=== PATIENT | female | born 1975 | race Caucasian/White ===

== ENCOUNTER 2024-08-12 11:54 | Outpatient (AMB) | payer BC, SELFPAY ==
--- NOTE | 2024-08-12 11:56 | HO.NEPHOV ---
Vital Signs 08/12/24 11:57 Height 5 ft 3 in Weight 154 lb 2 oz BMI 27.3 BP 122/68 Blood Pressure Location Lt brachial Position Sitting Pulse 76 Pulse Source Pulse Oximeter Pulse Oximetry (%) 98 Oxygen Delivery Method Room Air Intake Visit Reasons: Previous patient/ LVM Accompanied by: Father Allergies Influenza Virus Vaccines Allergy (Intermediate, Verified 08/12/24 11:57) Hives Medication List - Last Reconciled 08/12/24 by Nirav Espinoza MD cholecalciferol (vitamin D3) (Vitamin D3) 25 mcg PO DAILY lidocaine 5% 1 patch topical DAILY minoxidil 2.5 mg PO BID spironolactone 50 mg PO DAILY tramadol mg PO zolpidem 10 mg PO BEDTIME PRN HPI Comments Details: Patient self-referred for proteinuria. Previously seen by Dr. Manley. I do not have the full medical records at this time. She does have a complicated medical history [facility] Social History (Updated 08/12/24 @ 11:57 by Micaela Davila [facility]) Alcohol intake: never Patient Tobacco Use Status: Never used Tobacco Review of Systems Const Denies fever(s) and Denies weight loss Card Denies chest pain Resp Denies cough and Denies hemoptysis GI Denies abdominal pain, Denies diarrhea and Denies nausea Musc Denies back pain Neuro Denies focal weakness Physical Exam Vital Signs: Last Vital Signs Pulse 76 08/12/24 11:57 BP 122/68 08/12/24 11:57 Pulse Ox 98 08/12/24 11:57 Oxygen Delivery Method Room Air 08/12/24 11:57 BMI result Body Mass Index 27.3 Comfortable Neck supple no JVD. Lungs entry equal no rales. Heart S1-S2 heard no gallop or rub. Abdomen soft nontender. Neuro alert awake oriented. No asterixis. Extremities no edema. Results Reviewed Results Reviewed: Pending Nephrology Results: Urine Protein > OR = 300 MG/DL (NEG - TRACE) H 05/09/18 Assessment & Plan Assessment & Plan (1) Proteinuria: Code(s): R80.9 - Proteinuria, unspecified Category: Medical Plan Middle-aged woman with proteinuria. 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 She underwent a kidney biopsy few years ago. I will track down the results. I have initiated a workup to obtain a baseline renal function as well. She will benefit from VICKIE inhibition. She will also benefit from SGLT2 inhibitor. Discussed importance of tight control blood pressure to slow the portion disease. She should stay on low-sodium diet. Once the basic workup is completed she will return to the office Coding Level of Care Code New Pt Level 4 (19282) Diagnoses Proteinuria R80.9
[2024-08-12 11:57] VITALS: BP 122/68; PULSE 76; O2SAT 98; BMI 27.3
--- OUTSIDE RECORDS SUMMARY | 2024-08-12 14:21 | XMS_ITS | Continuity of Care Document ---
Author Organization [facility] Address [address] [place] [address] Phone Care Team Providers Care Hand Splitter Name Role Phone Elliott PHAN FACS RVT Melanie DILLARD Unavailable Unavailable Advance Directives Directive Yes / No Effective Date File Name No Information Encounters Encounter Description Practice Location Reason(s) For Visit Diagnoses Date Provider Providers Copied on Encounter [facility], [address], [place], [id number], tel:[phone] [address] No Information 3 Elliott PHAN FACS RVT NISHANT Dooley. [address], [place], [address], . tel:[phone] Referring Provider: Jorge Britt MD F, [address], [place], [address]. tel:[phone] Family History Family Member Type Diagnosis Age At Onset No Information Payers Payer name Insurance type Covered alliance party ID Authoriza tion(s) No Information Social History Type Description Quantity Date Captured Comments Sex Female Smoking Status No Information Chief Complaint And Reason For Visit No Information Reason For Referral Reason For Referral No Information History Of Present Illness Encounter Date Complaint History Of Prese nt Illness No Information Functional Status Date Functional Assessmen t No Information Instructions Date Instruction Additional Infor mation No Information Assessments Type Assessment Date No Information Patient Care Teams Name Effective Dates (start - stop) Status Members No Information
--- OUTSIDE RECORDS SUMMARY | 2024-08-12 14:21 | XMS_ITS | Clinical Summary ---
Author Organization [facility] Address [address] [place] [address] Care Team Providers Care Occupational Therapy Supervisor Name Role Phone Rosario Herrera MD Primary Care Provider [phone] Medications Medication Sig Dispensed Refills Start Date End Date Status Tacrolimus (ENVARSUS XR) 4 MG TB24 Take 8 mg by mouth 2 (two) times a day. 0 Active losartan (COZAAR) 100 MG tablet Take 1 tablet (100 mg total) by mouth daily. 90 tablet 0 09/08/2019 Active traMADol (ULTRAM) 50 MG tablet Take 50 mg by mouth every 8 (eight) hours as needed for pain. 18 tablet 0 10/20/2019 Active Social History Tobacco Use Types Packs/Day Years Used Date Smoking Tobacco: Never Assessed Sex and Gender Information Value Date Recorded Sex Assigned at Female 07/28/2019 11:46 AM EDT Gender Identity Female 07/28/2019 11:46 AM EDT Sexual Orientation Not on file Last Filed Vital Signs Vital Sign Reading Time Taken Comments Blood Pressure - - Pulse - - Temperature - - Respiratory Rate - - Oxygen Saturation - - Inhaled Oxygen Concentration - - Weight 104.3 kg (230 lb) 07/30/2019 4:49 PM EDT Height 160 cm (5' 3 ) 07/30/2019 4:49 PM EDT Body Mass Index 40.74 07/30/2019 4:49 PM EDT Plan of Treatment Health Maintenance Due Date Last Done Comments Hepatitis B Vaccines (1 of 3 - 3-dose series) 1975 Hepatitis C Screening 1975 COVID-19 Vaccine (#1) 10/07/1980 Pneumococcal Vaccine (1 of 2 - PCV) 10/07/1981 Depression Screening 1987 Preventative Health Evaluation 10/07/1993 DTap / Tdap / Td (1 - Tdap) 10/07/1994 Cervical Cancer Screening (P ap Smear) 10/07/1996 BMI Counseling 07/29/2020 07/30/2019 Colon Cancer Screening (Colonoscopy) 10/07/2020 Influenza Vaccine (#1) 2023 RSV Ped < 20 months Aged Out No longe r eligible based on patient's age to complete this topic Care Teams Occupational Therapy Supervisor Relationship Specialty Start Date End Date Rosario Herrera MD PCP - General Internal Medicine 07/31/19
--- OUTSIDE RECORDS SUMMARY | 2024-08-12 14:21 | XMS_ITS | Clinical Summary ---
Author Organization Patient Business Ser [facility] Address [address] [place] [address] Care Team Providers Care Senior C Software Engineer Name Role Phone Karime Esposito MD Primary Care Provider [phone] Allergies Active Allergy Reactions Criticality Noted Date Comments Flu Vac 2023 [id number](Pf) 04/13/2024 Latex Medium 04/02/2019 Latex Agent: Other Reaction(s): Rash/Dermatitis Medications BIOTIN ORAL Take by mouth. Act jing mv-mn/iron/FA/ vit K/chol/coQ10 (DEKAS BARIATRIC ORAL) MULTIPLE VITAMINS-MINERA LS (DEKAS BARIATRIC) CHEW TAB: Take 1 Tab by mouth daily. 07/12/19 21 Active sertraline (ZOLOFT) 50 mg tablet 0.5 mg. 11/15/19 21 Active ketoconazole (NIZORAL) 2 % shampoo 11/15/19 21 Active cyclobenzaprin e (FLEXERIL) 10 mg tablet Take 0.5 tablets (5 mg total) by mouth 2 (two) times a day if needed. 05/23/19 24 Active gabapentin (NEURONTIN) 100 mg capsule Take 1 capsule (100 mg total) by mouth at bedtime. As needed 04/08/20 24 Active lidocaine (LIDODERM) 5 % patch Apply 1 patch topically 1 (one) time each day. 04/08/20 24 Active meclizine (ANTIVERT) 12.5 mg tablet Take 1 tablet (12.5 mg total) by mouth. As needed 09/20/19 24 Active minoxidiL (LONITEN) 2.5 mg tablet Take 1 tablet (2.5 mg total) by mouth. As needed 01/28/20 24 Active spironolactone (ALDACTONE) 100 mg tablet Take 1 tablet (100 mg total) by mouth 1 (one) time each day. 02/18/20 24 Active tiZANidine (ZANAFLEX) 4 mg tablet Take 1 tablet (4 mg total) by mouth if needed. 01/10/20 24 Active zolpidem (AMBIEN) 10 mg tablet Take 1 tablet (10 mg total) by mouth at bedtime as needed. 03/09/20 24 Active polyethylene glycol (Golytely) 236-22.74-6.74 -5.86 gram solution Take 4L by mouth once for one dose. May substitue any PEG. Starting at 6PM the night before your procedure drink 1 8oz glasses at your own pace until you complete half of the gallon. Finish 2nd half of the gallon 5 hours before your procedure. 4000 mL 04/21/20 24 Active bisacodyL (DULCOLAX) 5 mg EC tablet Take 2 tablets by mouth right before beginning bowel prep. See instructions provided by the office 2 tablet 04/21/20 24 Active lactulose (CHRONULAC) solution TAKE 15ML (10 G TOTAL) BY MOUTH TWICE A DAY 2700 mL 08/11/19 25 Active lactulose (Enulose) solution Take 15 mL (10 g total) by mouth 2 (two) times a day. 2700 mL 05/11/19 25 025 Discontinued Active Problems Problem Noted Date Diagnosed Date Epigastric pain 04/08/2024 Class 3 severe obesity due t o excess calories with serious comorbidity and body mass index (BMI) of 40.0 to 44.9 in adult 04/08/2024 Asthma 10/30/2005 Hemorrhage of rectum and anus 09/20/2005 Allergic rhinitis 08/03/2005 Iron deficiency anemia 08/03/2005 Immunizations Name Administration Dates Next Due Td Tetanus diptheria (Tdvax) 7yo and older 08/03 Surgical History Surgery Date Site/Laterality Comments BELT ABDOMINOPLASTY 2004 PROCEDURE: HISTORICAL TUMMY TUCK WISDOM TOOTH EXTRACTION PROCEDURE: HISTORICAL WISDOM TEETH EXTRACTION Medical History Medical History Date Comments History of vitamin D deficiency 04/19/2015 DX:History of vitamin D deficiency Low grade squamous intraepit h lesion on cytologic smear cervix (lgsil) 04/19/2015 DX:Low grade squamou s intraepith lesion on cytologic smear cervix (lgsil); COMMENT: LSIL + HPV History of colposcopy 05/19/2015 DX:History of colposcopy; COMMENT: negative Hypertension DX:Hypertension Arthritis DX:Arthritis H/O breast biopsy 04/18/2015 DX:H/O breast biopsy Bartholin cyst 08/10/2011 DX:Bartholin cys t Proteinuria 09/15/2015 DX:Proteinuria 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 DX:HSV-2 (herpes simplex vir us 2) infection History of cervical cerclage 05/07/2008 DX: History of cervical cerclage Polyp at cervical os 2003 DX:Polyp at cervical os History of anemia 09/29/2008 DX:History of anemia Anemia DX:Anemia Anxiety state DX:Anxiety state Asthma DX:Asthma Abnormal cytological finding in specimen from cervix DX:Abnormal cytological find ing in specimen from cervix Nephritis and nephropathy, 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 DX:Nephritis and nephrop athy, with pathological lesion in kidney Venereal disease 2012 DX:Venereal dis ease; COMMENT: + HSV Esophageal reflux DX:Esophageal reflux Epigastric pain DX:Epigastric pa in History of gastric surgery DX:Hi story of gastric surgery Irritable bowel syndrome Family History Medical History Relation Name Comments Coronary artery disease Father Stroke Father Arthritis Mother Hyperlipidemia Mother Hypertension Mother Breast cancer Neg Hx Cervical cancer Neg Hx Colon cancer Neg Hx Ovarian cancer Neg Hx Prostate cancer Neg Hx Relation Name Status Comments Brother Alive 2,healthy Father Alive Mother Alive Sister Alive healthy Social History Tobacco Use Types Packs/Day Years Used Date Smoking Tobacco: Former Cigarettes Q uit: 12/31/2009 Smokeless Tobacco: Never Alcohol Use Standard Drinks/Week Comments No 0 (1 standard drink = 0.6 oz pur e alcohol) Interpersonal Safety Answer Date Record ed Physical Abuse 04/28/2024 Verbal Abuse 04/28/2024 Comments Unknown Sex and Gender Information Value Date Recorded Sex Assigned at Not on file Legal Sex Female 8:53 PM EDT Gender Identity Not on file Sexual Orientation Not on file Obstetrics History Last Filed Vital Signs Vital Sign Reading Time Taken Comments Blood Pressure 132/97 04/28/2024 9:46 AM EST Pulse 84 04/28/2024 9:46 AM EST Temperature 36.4 ??C (97.5 ??F) 04/28/2024 9:26 AM ES T Respiratory Rate 18 04/28/2024 9:46 AM EST Oxygen Saturation 95% 04/28/2024 9:26 AM EST Inhaled Oxygen Concentration - - Weight 68.5 kg (151 lb) 04/17/2024 10:24 AM EST Height 160 cm (5' 3 ) 04/17/2024 10:24 AM EST Body Mass Index 26.75 04/17/2024 10:24 AM EST Plan of Treatment Health Maintenance Due Date Last Done Comments Pneumococcal Vaccine: Pediatrics (0 to 5 Years) and At-Risk Patients (6 to 64 Years) (1 of 2 - PCV) 10/07/1994 Hepatitis B Vaccines (3 of 3 - 19+ 3-dose series) 07/05/2008 02/24/2008, 01/06/2008 DTaP,Tdap,and Td Vaccines (2 - Td or Tdap) 08/04/2015 08/03/2005 Depression Screening 02/05/2022 Social Influencers of Health Screening 02/05/2022 Breast Cancer Screening 02/09/2022 02/10/20 20, 01/06/2019, 12/18/2017 COVID-19 Vaccine ( season) 2023 02/17/2022, 10/18/2021, 05/13/2021, Additional history exists Cervical Cancer Screening: HPV 01/01/2024 12/31/2018 Hypertension/CHF/CAD Annual BMP Blood Test 04/13/2024 11/15/2020 Cholesterol Screening (Lipid Panel) 2024 10/09/2019 Influenza Vaccine (Season Ended) 2024 01/18/2017 Colorectal Cancer Screening: Colonoscopy 04/28/2027 04/28/2024 Hepatitis A Vaccines Aged Out 01/06/2008 No long er eligible based on patient's age to complete this topic HIV Screening Completed 07/14/2020 Hepatitis C Screening Completed 07/14/2020 HIB Vaccines Aged Out No longer eligi ble based on patient's age to complete this topic HPV Vaccines Aged Out No longer eligi ble based on patient's age to complete this topic IPV Vaccines Aged Out No longer eligi ble based on patient's age to complete this topic MMR Vaccines Aged Out No longer eligi ble based on patient's age to complete this topic Meningococcal ACWY Vaccine Aged Out N o longer eligible based on patient's age to complete this topic Meningococcal B Vaccine Aged Out No l onger eligible based on patient's age to complete this topic RSV Immunization Patients Under 20 months Aged Out No longer eligible based on patient's age to complete this topic Varicella Vaccines Aged Out No longer eligible based on patient's age to complete this topic Procedures Procedure Name Priority Date/Time Associated Diagnosis Comments COLONOSCOPY Routine 04/28/2024 9:25 AM EST Colon cancer screening Dysphagia ANNUAL BMP BLOOD TEST Routine 11/15/2020 HEPATITIS C SCREENING Routine 07/14/2020 HIV SCREENING Routine 07/14/2020 [facility] SCREENING DIGITAL Routine 02/10/2020 11:13 AM EDT Encounter for screening mammogram for malignant neoplasm of breast LIPID PANEL Routine 10/09/2019 HPV Routine 12/31/2018 from Last 3 Months or Most Recently Relevant to Health Maintenance Results * COLONOSCOPY Anesthesia - MAC; [facility] ENDOSCOPY (04/28/2024 9:25 AM EST) Anatomical Region Laterality Modality Endoscopy 04/28/2024 8:55 AM EST Impressions 04/28/2024 9:26 AM EST - Hemorrhoids found on perianal exam. ? - One 7 mm polyp in the cecum, removed with a cold ? snare. Resected and retrieved. ? - Two 2 to 3 mm polyps in the cecum, removed with a ? jumbo cold forceps. Resected and retrieved. ? - The examination was otherwise normal on direct and ? retroflexion views. Recommendation: ?- - Discharge patient to home. ? - High fiber diet. ? - Continue present medications. ? - Await pathology results. ? - Repeat colonoscopy for surveillance based on ? pathology results. Narrative 04/28/2024 9:26 AM EST [facility] GI Patient Name: Kortney Durant Procedure Date: 04/28/2024 8:55 AM Date of : 1975 Age: 48 Gender: Female Note Status: Finalized Attending MD: Ford Read DO, [id number] Procedure Date No Time: 04/28/2024 Procedure: ? Colonoscopy Indications: ? Screening for colorectal malignant neoplasm Providers: ? Ford Read DO Referring MD: ?Karime Esposito MD Medicines: ? Monitored Anesthesia Care Complications: ? No immediate complications. Estimated blood loss: ? Minimal. Estimated Blood Loss: ? Estimated blood loss was minimal. Procedure: ? Pre-Anesthesia Assessment: ? - - Prior to the procedure, a History and Physical was ? performed, and patient medications and allergies were ? reviewed. The patient is competent. The risks and ? benefits of the procedure and the sedation options and ? risks were discussed with the patient. All questions ? were answered and informed consent was obtained. ? Patient identification and proposed procedure were ? verified by the physician, the nurse, the ? anesthesiologist, the supervisor slashing department and the driver service technician ? in the pre-procedure area in the endoscopy suite. ? Mental Status Examination: alert and oriented. Airway ? Examination: normal oropharyngeal airway and neck ? mobility. Respiratory Examination: clear to ? auscultation. CV Examination: normal. Prophylactic ? Antibiotics: The patient does not require prophylactic ? antibiotics. Prior Anticoagulants: The patient has ? taken no anticoagulant or antiplatelet agents. ASA ? Grade Assessment: II - A patient with severe systemic ? disease. After reviewing the risks and benefits, the ? patient was deemed in satisfactory condition to ? undergo the procedure. The anesthesia plan was to use ? monitored anesthesia care (MAC). Immediately prior to ? administration of medications, the patient was ? re-assessed for adequacy to receive sedatives. The ? heart rate, respiratory rate, oxygen saturations, ? blood pressure, adequacy of pulmonary ventilation, and ? response to care were monitored throughout the ? procedure. The physical status of the patient was ? re-assessed after the procedure. ? After I obtained informed consent, the scope was ? passed under direct vision. Throughout the procedure, ? the patient's blood pressure, pulse, and oxygen ? saturations were monitored continuously.The ? Colonoscope was introduced through the anus and ? advanced to the cecum, identified by appendiceal ? orifice and ileocecal valve. The colonoscopy was ? performed without difficulty. The patient tolerated ? the procedure well. The quality of the bowel ? preparation was good. Findings: ?Hemorrhoids were found on perianal exam. ? A 7 mm polyp was found in the cecum. The polyp was ? sessile. The polyp was removed with a cold snare. ? Resection and retrieval were complete. Estimated blood ? loss was minimal. ? Two sessile polyps were found in the cecum. The polyps ? were 2 to 3 mm in size. These polyps were removed with ? a jumbo cold forceps. Resection and retrieval were ? complete. Estimated blood loss was minimal. ? The exam was otherwise without abnormality on direct ? and retroflexion views. Procedure Code(s): ? --- Professional --- ? 50824, Colonoscopy, flexible; with removal of ? tumor(s), polyp(s), or other lesion(s) by snare ? technique ? 18712, 59, Colonoscopy, flexible; with biopsy, single ? or multiple Diagnosis Code(s): ? --- Professional --- ? K64.9, Unspecified hemorrhoids ? Z12.11, Encounter for screening for malignant neoplasm ? of colon ? D12.0, Benign neoplasm of cecum CPT copyright 2020 [employer]. All rights reserved. The codes documented in this report are preliminary and upon tobacco sampler review may be revised to meet current compliance requirements. FORD Read DO 04/28/2024 9:26:28 AM This report has been signed electronically.Ford Read DO Number of Addenda: 0 Note Initiated On: 04/28/2024 8:55 AM Scope Withdrawal Time: 0 hours 8 minutes 8 seconds Scope In: 9:11:03 AM Scope Out: 9:23:32 AM ? Endoscopy Department at [facility] - [address] [place] [address], ? [place] [address] Procedure Note Ford Read DO - 04/28/2024 [facility] GI Patient Name: Kortney Durant Procedure Date: 04/28/2024 8:55 AM Date of : 1975 Age: 48 Gender: Female Note Status: Finalized Attending MD: Ford Read DO, [id number] Procedure Date No Time: 04/28/2024 Procedure: Colonoscopy Indications: Screening for colorectal malignant neoplasm Providers: Ford Read DO Referring MD: Karime Esposito MD Medicines: Monitored Anesthesia Care Complications: No immediate complications. Estimated blood loss: Minimal. Estimated Blood Loss: Estimated blood loss was minimal. Procedure: Pre-Anesthesia Assessment: - - Prior to the procedure, a History and Physicalwas performed, and patient medications and allergieswere reviewed. The patient is competent. The risks and benefits of the procedure and the sedation optionsand risks were discussed with the patient. Allquestions were answered and informed consent was obtained. Patient identification and proposed procedure were verified by the physician, the nurse, the anesthesiologist, the supervisor slashing department and thetechnician in the pre-procedure area in the endoscopy suite. Mental Status Examination: alert and oriented.Airway Examination: normal oropharyngeal airway and neck mobility. Respiratory Examination: clear to auscultation. CV Examination: normal. Prophylactic Antibiotics: The patient does not requireprophylactic antibiotics. Prior Anticoagulants: The patient has taken no anticoagulant or antiplatelet agents. ASA Grade Assessment: II - A patient with severesystemic disease. After reviewing the risks and benefits,the patient was deemed in satisfactory condition to undergo the procedure. The anesthesia plan was touse monitored anesthesia care (MAC). Immediately priorto administration of medications, the patient was re-assessed for adequacy to receive sedatives. The heart rate, respiratory rate, oxygen saturations, blood pressure, adequacy of pulmonary ventilation,and response to care were monitored throughout the procedure. The physical status of the patient was re-assessed after the procedure. After I obtained informed consent, the scope was passed under direct vision. Throughout theprocedure, the patient's blood pressure, pulse, and oxygen saturations were monitored continuously.The Colonoscope was introduced through the anus and advanced to the cecum, identified by appendiceal orifice and ileocecal valve. The colonoscopy was performed without difficulty. The patient tolerated the procedure well. The quality of the bowel preparation was good. Findings: Hemorrhoids were found on perianal exam. A 7 mm polyp was found in the cecum. The polyp was sessile. The polyp was removed with a cold snare. Resection and retrieval were complete. Estimatedblood loss was minimal. Two sessile polyps were found in the cecum. Thepolyps were 2 to 3 mm in size. These polyps were removedwith a jumbo cold forceps. Resection and retrieval were complete. Estimated blood loss was minimal. The exam was otherwise without abnormality ondirect and retroflexion views. Procedure Code(s): --- Professional --- 62445, Colonoscopy, flexible; with removal of tumor(s), polyp(s), or other lesion(s) by snare technique 98772, 59, Colonoscopy, flexible; with biopsy,single or multiple Diagnosis Code(s): --- Professional --- K64.9, Unspecified hemorrhoids Z12.11, Encounter for screening for malignantneoplasm of colon D12.0, Benign neoplasm of cecum CPT copyright 2020 [employer]. All rights reserved. The codes documented in this report are preliminary and upon tobacco sampler reviewmay be revised to meet current compliance requirements. FORD Read DO 04/28/2024 9:26:28 AM This report has been signed electronically.Ford Read DO Number of Addenda: 0 Note Initiated On: 04/28/2024 8:55 AM Scope Withdrawal Time: 0 hours 8 minutes 8 seconds Scope In: 9:11:03 AM Scope Out: 9:23:32 AM Endoscopy Department at [facility] - [address] [place] [id number] IMPRESSION: - Hemorrhoids found on perianal exam. - One 7 mm polyp in the cecum, removed with a cold snare. Resected and retrieved. - Two 2 to 3 mm polyps in the cecum, removed with a jumbo cold forceps. Resected and retrieved. - The examination was otherwise normal on directand retroflexion views. Recommendation: - - Discharge patient to home. - High fiber diet. - Continue present medications. - Await pathology results. - Repeat colonoscopy for surveillance based on pathology results. us Ford Read DO GI~PROCEDURE ORDERABLES Final Re sult * Annual BMP Blood Test (11/15/2020) Annual BMP Blood Test Abstracted Historical Provider MD HEALTH MAINTENANCE Final Result * HIV Screening (07/14/2020) Pathologist [facility] HIV Screening Abstracted Historical Provider HEALTH MAINTENANCE Final Result * Hepatitis C Screening (07/14/2020) Hepatitis C Screening Abstracted Historical Provider HEALTH MAINTENANCE Final Result * ANDRÉS SCREENING DIGITAL (02/10/2020 11:13 AM EDT) Anatomical Region Laterality Modality Mammography 02/09/2020 4:09 PM EDT Narrative 02/10/2020 11:[address] [facility] Diagnostic Imaging Department [address] [place], [place] [id number] Patient: ??KORTNEY DURANT ?/Age/Sex: 1975 - 44 - F Unit#: ??[id number] ? Location/Status: ??SPDIMAM/REG CLI ? Mnemonic/Ordering Site: ??DIGSC/SPMAM Ordering Physician: ??Kedar BUSTILLOS MD Andrés Screening Digital - 02/09/20 - 163 EXAM: [facility] Screening Digital EXAM DATE AND TIME: 02/09/2020 4:38 PM HISTORY: ??Screening. Previous bilateral breast biopsies, pathology benign. COMPARISON: ??01/05/19, 12/18/17, 12/16/15, 10/19/15 TECHNIQUE: CC and MLO views of both breasts were obtained using full field digital mammography. Bilateral digital breast tomosynthesis was performed in the MLO projection. Computer aided detection with the [employer]ot.[employer]-Gameyeeeah was employed. TISSUE DENSITY: b. There are scattered areas of fibroglandular density. FINDINGS: No suspicious masses, grouped microcalcifications, or areas of architectural distortion are seen. Biopsy markers are again seen bilaterally. The skin and vascularity are unremarkable. IMPRESSION: Stable mammographic appearance of the breasts. ??No evidence of malignancy is seen. A negative mammogram in the presence of a clinically suspicious palpable abnormality does not preclude the possibility of malignancy or alter the indications for biopsy. BI-RADS: ??Category 1: Negative RECOMMENDATION(S): 1: Routine screening mammogram BILATERAL in 1 year. 37154, 31525 3341F, 7025F Dictating Physician: ??JACLYN VELAZQUEZ MD Electronically Signed by: ??JACLYN VELAZUQEZ MD Dic Date/Time: ??02/10/20 1113 Sign date/Time: ??02/10/20 1113 Procedure Note Jaclyn Velazquez MD - 04/10/2022 [facility] Diagnostic Imaging Department [address] [place], [place] [id number] Patient: ALBERTOAZALIAKORTNEY /Age/Sex: 1975 - 44 - F Unit#: [id number] Location/Status: [facility] CLI Mnemonic/Ordering Site: [facility] Ordering Physician: Kedar BUSTILLOS MD [facility] Screening Digital - 02/09/20 - 1637 EXAM: [facility] Screening Digital EXAM DATE AND TIME: 02/09/2020 4:38 PM HISTORY: Screening. Previous bilateral breast biopsies, pathologybenign. COMPARISON: 01/05/19, 12/18/17, 12/16/15, 10/19/15 TECHNIQUE: CC and MLO views of both breasts were obtained using fullfield digital mammography. Bilateral digital breast tomosynthesis was performedin the MLO projection. Computer aided detection with the [employer] 7.2-LifeDoxas employed. TISSUE DENSITY: b. There are scattered areas of fibroglandular density. FINDINGS: No suspicious masses, grouped microcalcifications, or areas ofarchitectural distortion are seen. Biopsy markers are again seen bilaterally. The skinand vascularity are unremarkable. IMPRESSION: Stable mammographic appearance of the breasts. No evidence of malignancyis seen. A negative mammogram in the presence of a clinically suspicious palpable abnormality does not preclude the possibility of malignancy or alter the indications for biopsy. BI-RADS: Category 1: Negative RECOMMENDATION(S): 1: Routine screening mammogram BILATERAL in 1 year. 01283, 60334 3341F, 7025F Dictating Physician: JACLYN VELAZQUEZ MD Electronically Signed by: JACLYN VELAZQUEZ MD Dic Date/Time: 02/10/20 1113 Sign date/Time: 02/10/20 [address] [facility] BI PROCEDURES Kimberly l Result * Lipid panel (10/09/2019) LDL/HDL Ratio 2 0 - 4 Triglycerides 96 0 - 150 mg/dL Cholesterol 121 0 - 200 mg/dL HDL 51 >=40 mg/dL LDL Cholesterol 51 0 - 100 mg/dL Blood Venous blood specimen / Unknown Historical Provider LAB BLOOD ORDERABLES Kimberly l Result * Cervical Cancer Screening: HPV (12/31/2018) Cervical Cancer Screening: HPV Abstracted ,Negative Historical Provider HEALTH MAINTENANCE Final Result from Last 3 Months or Most Recently Relevant to Health Maintenance Insurance [facility] Advance Directives Documents on File Type Date Recorded Patient Cloth Seconds Sorter Expl anation Health Care Decision (hx) 08/31/2021 AD NUNEZ DIRECTIVE Health Care Decision (hx) 07/03/2021 AD NUNEZ DIRECTIVE Health Care Decision (hx) 07/03/2021 AD NUNEZ DIRECTIVE Health Care Decision (hx) 07/03/2021 AD NUNEZ DIRECTIVE Health Care Decision (hx) 07/03/2021 AD NUNEZ DIRECTIVE Care Teams Senior C Software Engineer Relationship Specialty Start Date End Date Karime Esposito MD [address] [place] [phone] PCP - General Internal Medicine 06/07/20
--- OUTSIDE RECORDS SUMMARY | 2024-08-12 14:21 | XMS_ITS | Clinical Summary ---
Author Organization [facility] Facility Address [address] [place] [id number] Care Team Providers Care Drill Rig Operator Name Role Phone Jorge Britt MD Primary Care Provider [phone] Allergies Active Allergy Reactions Criticality Noted Date Comments Latex Rash Low 09/12/2021 Oxycodone-Acetaminophen Anaphylaxis High 09/12/2021 pt deneis allergy Medications clobetasol (TEMOVATE) 0.05 % cream 1 Active Multiple Vitamins-Minera ls (DEKAs Bariatric) chewable tablet 1 Active ketoconazole (NIZORAL) 2 % shampoo Apply 1 application topically 1 Active Active Problems Problem Noted Date Diagnosed Date Hypertensive disorder 12/12/2021 Hypertriglyceridemia 12/12/2021 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 09/12/2021 Acute nontraumatic kidney injury 07/21/2020 Chronic glomerulonephritis 07/21/2020 Disorder of kidney 07/21/2020 Hypertensive heart disease without congestive he art failure 07/21/2020 Chronic kidney disease stage 1 07/12/2020 Proteinuria 07/12/2020 Immunizations Immunization Administration Dates Next Due Hep A, Unspecified 01/06/2008 Hep B, Unspecified 02/24/2008,01/06/2008 Tiffany SARS-COV-2 01/10/2021 Family History Medical History Relation Comments Heart disease Father Stroke Father Dementia Mother Hypertension Mother Relation Status Comments Father Alive Mother Alive Social History Tobacco Use Types Packs/Day Years Used Date Smoking Tobacco: Never Smokeless Tobacco: Never Alcohol Use Standard Drinks/Week Comments No 0 (1 standard drink = 0.6 oz pur e alcohol) Comments Unknown Sex and Gender Information Value Date Recorded Sex Assigned at Not on file Legal Sex Female 5:01 PM EST Gender Identity Not on file Sexual Orientation Not on file Last Filed Vital Signs Vital Sign Reading Time Taken Comments Blood Pressure 122/82 12/12/2021 4:33 PM EDT Pulse 76 12/12/2021 4:33 PM EDT Temperature - - Respiratory Rate - - Oxygen Saturation 98% 12/12/2021 4:33 PM EDT Inhaled Oxygen Concentration - - Weight 70.8 kg (156 lb) 12/12/2021 4:33 PM EDT Height 165.1 cm (5' 5 ) 12/12/2021 4:33 PM EDT Body Mass Index 25.96 12/12/2021 4:33 PM EDT Plan of Treatment Health Maintenance Due Date Last Done Comments Hepatitis B Vaccine (1 of 3 - 19+ 3-dose series) 10/07/1994 02/24/2008, 01/06/2008 Pneumococcal Vaccine: Peds ( 0 to 5 Years) and At-Risk Patients (6 to 49 Years) (1 of 2 - PCV) 10/07/1994 Influenza Vaccine (Season Ended) [address] [place] [address] [facility] Care Teams Drill Rig Operator Relationship Specialty Start Date End Date Jorge Britt MD [id number] [facility] [place] PCP - General Internal Medicine 12/12/21
== END 2024-08-12 12:31 | disposition home or self-care (01) ==
LOC: HO.HKAS 11:55
PROVIDERS: PCP Internal Medicine; Visit Provider Internal Medicine Hypertension Specialist
DX: R80.9 Proteinuria, unspecified (principal)
CPT/HCPCS: 99204